=== PATIENT | female | born 1980 | race Two or more races ===

== ENCOUNTER 2020-02-24 09:52 | Emergency (ER) | payer MEDICAID ==
[~2020-02-24] VITALS: Ht 162.6 cm; Wt 70.8 kg
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
[2020-02-24] MEDS ORDERED: HYDROCODONE/APAP 5/325MG 1 EACH TABLET PO ONE (10:00)
--- NOTE | 2020-02-24 10:00 | NUR ---
PT SEEN AND EXAMINED
--- NOTE | 2020-02-24 10:10 | NUR ---
URINE SPECIMEN COLLECTED AND SENT TO LAB.
[2020-02-24] MEDS ORDERED: HYDROCODONE/APAP 5/325MG 1 EACH TABLET ONE (10:11)
--- NOTE | 2020-02-24 10:23 | NUR ---
NREMT AT BEDSIDE FOR XRAY.
--- NOTE | 2020-02-24 11:48 | NUR ---
Patient discharged to home in stable condition. Written and verbal after care instructions given. Patient verbalizes understanding of instruction.
[2020-02-24 11:49] VITALS: BP 147/99
== END 2020-02-24 11:53 | disposition home or self-care (01) ==
LOC: ER 09:53
DX: M25.512 Pain in left shoulder (principal); G89.29 Other chronic pain; Y08.89XA Assault by other specified means, initial encounter; Y93.89 Activity, other specified; Y92.89 Other specified places as the place of occurrence of the external cause; Y99.8 Other external cause status
CPT/HCPCS: 73030-TC; 73060-TC; 73070-TC; 84703-TC